=== PATIENT | male | born 1990 | race Caucasian/White ===

== ENCOUNTER 2024-12-05 03:26 | Emergency (ER) | payer MEDICARE, OTHER, SELFPAY ==
--- NOTE | ~2024-12-05 | XR_ITS ---
EXAMINATION: XR hand RT min 3V DATE: 12/05/2024 04:23 INDICATION: Posterior right hand pain after punching a wall TECHNIQUE: Posteroanterior, oblique and lateral views of the right hand were obtained. COMPARISON: None. FINDINGS: Alignment is normal. Possible old healed fracture of the fifth metacarpal. No acute fracture. Joint s paces are normal. Soft tissues are unremarkable. IMPRESSION: 1. No acute osseous abnormality. Reviewed, dictated and finalized at location A.
--- OUTSIDE RECORDS SUMMARY | 2024-12-05 03:29 | XMS_ITS | CONTINUITY OF CARE DOCUMENT ---
Author Name bryant hurtado Address Unknown Organization [facility] Address [address] [place] [address] [address] [place] [address] Phone [phone] Care Team Providers Care Costume Mistress Name Role Phone Lien Diaz MD Unavailable [phone] Lien Diaz MD Unavailable INSURANCE PROVIDERS Payer name Policy type / Coverage type [place] red democrat ID [employer] insurance company [id number] [facility] [employer] insurance [employer] [id number]
--- OUTSIDE RECORDS SUMMARY | 2024-12-05 03:29 | XMS_ITS | Continuity of Care Document ---
Author Organization formerly [facility] Address [address] [place] [address] Phone Care Team Providers Care Ordnance Mechanic Name Role Phone Jack Cabrales DO Unavailable Unavailable Advance Directives Directive Yes / No Effective Date File Name No Information Encounters Encounter Description Practice Location Reason(s) For Visit Diagnoses Date Provider Providers Copied on Encounter [facility], [address] [employer] [employer], [id number], [place] tel:[phone] [facility] No Information Keron Carmona. [address] [place], [address], [place]. tel: [phone] Family History Family Member Type Diagnosis Age At Onset No Information Payers Payer name Insurance type Covered green party ID Authoriza tion(s) [facility] [id number] Social History Type Description Quantity Date Captured Comments Sex Male Smoking Status No Information Chief Complaint And Reason For Visit No Information Reason For Referral Reason For Referral No Information History Of Present Illness Encounter Date Complaint History Of Prese nt Illness No Information Functional Status Date Functional Assessmen t No Information Instructions Date Instruction Additional Infor mation No Information Assessments Type Assessment Date No Information Patient Care Teams Name Effective Dates (start - stop) Status Members No Information
[2024-12-05 03:39] VITALS: BP 144/106; PULSE 87; RESP 18; TEMP 36.6; O2SAT 97
--- NOTE | 2024-12-05 05:53 | ED_ITS ---
HPI - General Adult General Chief complaint: Extremity Injury, Upper Stated complaint: Right hand injury, punched a wall Time Seen by Provider: 12/05/24 05:33 History of Present Illness HPI narrative: This is a 34-year-old male presenting after injuring his hand. He was angry and punched wall. No other injuries. No breaks in the skin. Related Data Allergies Allergy/AdvReac Type Severity Reaction Status Date / Time lithium Allergy Unknown Other Verified 12/05/24 03:41 methylphenidate (From Allergy Unknown Other Verified 12/05/24 03:41 Ritalin) Exam Narrative: APPEARANCE: No apparent distress. Head: atraumatic. EYES: EOMI, NOSE: Atraumatic NECK: Trachea midline RESPIRATORY: No increased rate of breathing CARDIOVASCULAR: RRR, ABDOMINAL: Non-distended MUSCULOSKELETAl: Focal exam of the right hand revealed swelling over the 3rd and 4th knuckle. Sweetbread Trimmer strength is intact. Cap refills less than 2 seconds. No breaks in the skin. NEURO: Alert. Moving 4/4 extremities SKIN:: Warm, dry. Normal color PSYCHIATRIC: Normal affect Course Vital Signs Vital signs: Vital Signs Temperature 97.8 F 12/05/24 03:39 Pulse Rate 87 12/05/24 03:39 Respiratory Rate 18 12/05/24 03:39 Blood Pressure 144/106 H 12/05/24 03:39 Pulse Oximetry 97 12/05/24 03:39 Oxygen Delivery Room Air 12/05/24 03:39 Temperature 97.8 F 12/05/24 03:39 Pulse Rate 87 12/05/24 03:39 Respiratory Rate 18 12/05/24 03:39 Blood Pressure 144/106 H 12/05/24 03:39 Pulse Oximetry 97 12/05/24 03:39 Oxygen Delivery Room Air 12/05/24 03:39 Medical Decision Making [facility] Narrative Medical decision making narrative: -Course: 34-year-old male presenting after punching a wall. No fractures on x- ray.No breaks in the skin. Treated w/ Motrin Tylenol discharged. Vital Signs Vital Signs: Vital Signs Temperature 97.8 F 12/05/24 03:39 Pulse Rate 87 12/05/24 03:39 Respiratory Rate 18 12/05/24 03:39 Blood Pressure 144/106 H 12/05/24 03:39 Pulse Oximetry 97 12/05/24 03:39 Oxygen Delivery Room Air 12/05/24 03:39 Temperature 97.8 F 12/05/24 03:39 Pulse Rate 87 12/05/24 03:39 Respiratory Rate 18 12/05/24 03:39 Blood Pressure 144/106 H 12/05/24 03:39 Pulse Oximetry 97 12/05/24 03:39 Oxygen Delivery Room Air 12/05/24 03:39 Discharge Plan Discharge Clinical Impression: Hand pain Patient Disposition: Home Condition: Stable Instructions: Antibiotic Form, Arthralgia (ED) Additional Instructions: Please do not punch [place] anymore. Use Motrin Tylenol for pain. Patient Language: Polish Prescriptions: New ibuprofen 800 mg tablet 800 mg PO TID PRN (Reason: pain) 7 Days Qty: 21 0RF acetaminophen 500 mg tablet 1,000 mg PO TID PRN (Reason: lizzeth) 7 Days Qty: 42 0RF Follow-up/Referrals: Stephenie Betancur MD [Primary Care Provider] -
[2024-12-05] MEDS: IBUPROFEN 400 MG TABLET 800 MG PO (06:11)
[2024-12-05] MEDS: ACETAMINOPHEN 500 MG TABLET 1000 MG PO (06:11)
--- OUTSIDE RECORDS SUMMARY | 2024-12-05 06:29 | XMS_ITS | Clinical Summary ---
Author Organization [facility] Address [address] [place] [address] Care Team Providers Care Clinical Recruiter Name Role Phone Sarbjit Cardenas MD Unavailable [phone] Kris Membreno MD Unavailable [phone] Fermin Carney MD Primary Care Provider Jorge Hutchins MD Unavailable [phone] Maricruz Saunders RN Unavailable [phone] Allergies Active Allergy Reactions Criticality Noted Date Comments [place] Vomiting Low Methylphenidate Palpitations Low Medications aspirin 81 mg enteric coated tablet Take 1 tablet (81 mg total) by mouth 2 (two) times a day for 14 days 28 tablet 01/30/20 22 Active Additional Information Patient not taking.Reported on 11/25/2024 acetaminophen (TYLENOL) 500 mg tabletIndications: Pain Take 2 tablets (1,000 mg total) by mouth every 6 (six) hours as needed for pain 60 tablet 1 03/20/20 22 Active naproxen (NAPROSYN) 500 mg tablet Take 1 tablet (500 mg total) by mouth 2 (two) times a day with meals for 14 days 28 tablet 07/01/20 22 Active rizatriptan SCOW HAND (MAXALT-SCOW HAND) 10 mg disintegrating tabletIndications: Migraine Take 1 tablet (10 mg total) by mouth every 2 (two) hours as needed for migraine May repeat in 2 hours if unresolved. Do not exceed 30 mg in 24 hours. 9 tablet 3 01/18/20 23 Active Additional Information Patient not taking.Reported on 11/25/2024 ondansetron ODT (ZOFRAN-ODT) 4 mg disintegrating tablet Dissolve 1 tablet for mild to moderate nausea or vomiting or 2 tablets for severe nausea or vomiting oral twice a day as needed. 20 tablet 09/01/19 24 Active Additional Information Patient not taking.Reported on 11/25/2024 ergocalciferol (VITAMIN D) 50,000 unit capsuleIndications :Vitamin D Deficiency Take 1 capsule (50,000 Units total) by mouth once a week For 12 weeks 12 capsule 3 06/09/20 24 Active albuterol HFA (ProAir HFA) 90 mcg/actuation inhalerIndications :Mild intermittent asthma without complication Inhale 2 puffs every 4 (four) hours as needed for wheezing or shortness of breath 8.5 g 2 06/09/20 24 025 Active magnesium oxide (MAG-OX) 400 mg (241.3 mg elemental magnesium) tablet Take 1 tablet (400 mg total) by mouth daily 30 tablet 3 08/13/19 25 Active rimegepant (NURTEC ODT) tablet,disintegrat ingIndications:[facility] 1 tablet (75 mg total) under the tongue every other day 16 tablet 1 08/13/19 25 Active Additional Information Patient not taking.Reported on 11/25/2024 amitriptyline (ELAVIL) 25 mg tabletIndications: Chronic migraine without aura without status migrainosus, not intractable Take one tablet po qhs for one week, then two tablets po qhs 200 tablet 11/06/19 25 Active sulfamethoxazole-t rimethoprim (BACTRIM DS) 800-160 mg per tablet Take 1 tablet by mouth 2 (two) times a day 11/23/19 25 Active sulfamethoxazole-t rimethoprim (BACTRIM DS) 800-160 mg per tabletIndications: Cellulitis of groin Take 1 tablet (160 mg of trimethoprim total) by mouth 2 (two) times a day for 5 days 10 tablet 11/26/19 25 025 Active Problems Problem Noted Date Diagnosed Date Cellulitis 11/25/2024 Assessment & Plan (11/25/2024 5:07 PM CDT): Patient with indurated lesion located and suprapubic area. Improving in size and draining. Patient denied I and D in office today. Today's day 3 of 7 of Bactrim. Will extend an extra 5 days. Chronic post-traumatic headache 08/30/2024 Preventative health care 07/17/2023 Assessment & Plan (07/17/2023 11:39 AM MARKETING OPERATIONS COORDINATOR): - New or chronic worsening conditions: no significant acute issues on this visit - Mental health: no significant psychiatric/mental health conditions affecting her day to day functioning - Dental health: Up to date with regular dental care and cleaning. Discussed importance of regular tooth brushing, flossing, and dental visits. - Nutrition: Stressed importance of moderation in sodium/caffeine intake, saturated fat and cholesterol, caloric balance, sufficient intake of fresh fruits, vegetables - Exercise: Stressed the importance of regular exercise - Immunizations: Age and sex appropriate immunizations reviewed and offered Prostate cancer screening: Colon cancer screening: Lung cancer screening: DDD (degenerative disc disease), lumbar 07/17/20 Overview (07/21/2023): XR Lumbar spine 08/02 IMPRESSION: Unchanged grade 1 L5 on S1 anterolisthesis. Bilateral L5 pars defects.. Unchanged mild L3-L4 degenerative disc disease. Environmental allergies 10/20/2022 Assessment & Plan (10/20/2022 5:13 PM CDT): - chronic, poorly controlled - start use of antihistamines, script sent for Cetirizine 10 mg daily PRN Vitamin D deficiency 10/16/2022 Assessment & Plan (06/10/2024 6:10 AM CDT): - chronic, not at goal - noted to have vitamin D deficiency 12/2021 - most recent Vitamin D level is as shown below - patient not on Vitamin D 50K weekly, has run out of it, refill placed - recheck labs, order placed Vitamin D 25-OH Date Value Ref Range Status 07/17/2023 16 (L) 30 - 80 ng/mL Final Assessment & Plan (07/17/2023 12:01 PM MARKETING OPERATIONS COORDINATOR): - chronic, not at goal - noted to have vitamin D deficiency 12/2021 - most recent Vitamin D level is as shown below - patient not on Vitamin D 50K weekly, refill placed - recheck labs, order placed Vitamin D 25-OH Date Value Ref Range Status 01/01/2022 20 (L) 30 - 80 ng/mL Final Comment: Testing performed by: [facility], [address] [place] [address]., [id number] Assessment & Plan (01/20/2023 2:26 PM CDT): - chronic, not at goal - noted to have vitamin D deficiency 12/2021 - most recent Vitamin D level is as shown below - patient not on Vitamin D 50K weekly, refill placed Vitamin D 25-OH Date Value Ref Range Status 01/01/2022 20 (L) 30 - 80 ng/mL Final Comment: Testing performed by: [facility], [address] [place] [address]., [id number] Assessment & Plan (10/16/2022 2:15 PM MARKETING OPERATIONS COORDINATOR): - chronic, not at goal - noted to have vitamin D deficiency 12/2021 - most recent Vitamin D level is as shown below - patient not on Vitamin D 50K weekly, refill placed Vitamin D 25-OH Date Value Ref Range Status 01/01/2022 20 (L) 30 - 80 ng/mL Final Comment: Testing performed by: [facility], [address] [place] [address]., [id number] Tobacco use 01/02/2022 Shoulder arthritis 12/20/2021 Overview (07/21/2023): Left shoulder XR 08/02 Similar in appearance moderate to severe left glenohumeral osteoarthritis. 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 05/25/2021 Assessment & Plan (05/25/2021 3:59 PM CDT): - new problem, not well controlled - clinical diagnosis - will obtain EMG to confirm - in mean time wear elbow pads, avoid leaning over the elbow or putting pressure over it - if not resolved consider surgical intervention Post-traumatic osteoarthritis of both shoulders 01/18/2021 Assessment & Plan (01/18/2021 10:38 PM CDT): - has follow up with orthopedics Erectile dysfunction 08/15/2020 Mood disorder 07/11/2020 Assessment & Plan (01/20/2023 2:37 PM CDT): - chronic condition follows with [facility] - history of mood disoorder, PTSD, anxiety/depression - patient states he has anger issues, depression - used to be on Wellbutrin XL and Seroquel 25 mg - not on any medications now - getting counseling support biweekly - will defer management to psychiatry at this time - no SI, HI, Hallucinations, delusions - continue current management per psychiatry Assessment & Plan (01/18/2021 10:41 PM CDT): - follows with [facility] - unclear exact type of mood disorder - patient states he has anger issues, depression - he is currently on Wellbutrin XL and Seroquel 25 mg which was recently started - will defer management to psychiatry at this time - no SI, HI, Hallucinations, delusions Assessment & Plan (08/14/2020 4:14 PM MARKETING OPERATIONS COORDINATOR): - follows with [facility] - unclear exact type of mood disorder - patient states he has anger issues - he is currently on Wellbutrin XL and Seroquel 25 mg which was recently started Assessment & Plan (07/11/2020 12:39 PM MARKETING OPERATIONS COORDINATOR): - unclear exact type of mood disorder - patient states he has anger issues - follows with psychiatry at the [facility] Hearing loss of right ear 07/11/2020 Rotator cuff disorder, right 07/11/2020 Assessment & Plan (07/18/2021 3:02 PM MARKETING OPERATIONS COORDINATOR): - patient has hx of right shoulder surgeries in remote past - more recently did over a month of phsyical tehrapy with inadequate response and was causing more pain which was stopped - I have ordered an Xray of right shoulder for review/interpretation - he has significant weakness, pain and limitation on range of motion that my clinical impression is that he has a rotator cuff tear/labrum tear that may need surgical intervention - States that he has seen ortho, pending surgery/eval insurance issues Would benefit with repeat PT and feel that he may need surgical intervention - will do toradol shot Assessment & Plan (07/11/2020 12:49 PM MARKETING OPERATIONS COORDINATOR): - patient has hx of right shoulder surgeries in remote past - more recently did over a month of phsyical tehrapy with inadequate response and was causing more pain which was stopped - I have ordered an Xray of right shoulder for review/interpretation - he has significant weakness, pain and limitation on range of motion that my clinical impression is that he has a rotator cuff tear/labrum tear that may need surgical intervention - he will Likely need MRI of right shoulder - I will refer to orthopedic surgery for this matter as I do not think he would benefit with repeat PT and feel that he may need surgical intervention Hypogonadism in male 07/10/2020 Assessment & Plan (11/06/2021 10:07 AM CDT): - chronic condition, not well controlled - hx of low testosterone level - complains of low sex drive and low energy and erectile dysfunction, mood disorder - in past saw Urology - he was started on Clomid but eventually stopped medication - has had his FSH, LH, Estradiol and Testosterone levels checked - recheck Testosterone level as he has symptoms again, if low will need to follow up with urology Assessment & Plan (05/25/2021 3:55 PM CDT): - chronic condition, not well controlled - hx of low testosterone level - complains of low sex drive and low energy and erectile dysfunction, mood disorder - recently saw Urology - started on Clomid - has stopped taking clomid - will need follow up with urology - has had his FSH, LH, Estradiol and Testosterone levels checked Lab Results Component Value Date TESTOSTERONE 321 12/27/2020 Assessment & Plan (01/18/2021 10:40 PM CDT): - hx of low testosterone level - complains of low sex drive and low energy and erectile dysfunction, mood disorder - recently saw Urology - started on Clomid - already noticing improvement in ED - has had his FSH, LH, Estradiol and Testosterone levels checked Assessment & Plan (08/14/2020 4:33 PM MARKETING OPERATIONS COORDINATOR): - hx of low testosterone level - complains of low sex drive and low energy and erectile dysfunction, mood disorder - last checked about 2 years ago and then he was prescribed testosterone replacement for short period of time, he used the gel and seems like it helped his mood as well as his sexual desire - I have already checked PSA, CBC - checked testosterone levels which was borderline but now states he did not do it in the morning and that it was done in the afternoon - he has trouble reaching orgasm as well - he has an appointment with Urology Assessment & Plan (07/11/2020 12:32 PM MARKETING OPERATIONS COORDINATOR): - hx of low testosterone level - complains of low sex drive - last checked about 2 years ago and then he was prescribed testosterone replacement for short period of time - he preferred the lotion over the pill - will check PSA, CBC, Testosterone levels - he has trouble reaching orgasm LIZZETTE (obstructive sleep apnea) 07/10/2020 Overview (07/11/2020): Diagnostic Polysomnogram on 07/19/2019 - LIZZETTE with mild AHI 13.7 per hour and a possible atrial fibrillation. Assessment & Plan (01/16/2021 3:16 PM CDT): - states he was tested in 2018 and was diagnosed with LIZZETTE - obtained and reviewed records from outside facility - in care everywhere and - had Diagnostic Polysomnogram on 07/19/2019 - LIZZETTE with mild AHI 13.7 per hour and a possible atrial fibrillation. Assessment & Plan (07/11/2020 12:36 PM MARKETING OPERATIONS COORDINATOR): - states he was tested in 2018 and was diagnosed with LIZZETTE - obtained and reviewed records from outside facility - in care everywhere and - had Diagnostic Polysomnogram on 07/19/2019 - LIZZETTE with mild AHI 13.7 per hour and a possible atrial fibrillation. Class 3 severe obesity due t o excess calories without serious comorbidity with body mass index (BMI) of 40.0 to 44.9 in adult 07/10/2020 Assessment & Plan (06/10/2024 6:13 AM CDT): Wt Readings from Last 3 Encounters: 06/09/24 128.8 kg (284 lb) 05/28/24 129.7 kg (286 lb) 11/02/23 119.3 kg (263 lb) Body mass index is 40.75 kg/m . - chronic condition, not at goal --> some weight gain noted - BMI Follow-up includes: nutrition counseling, exercise counseling and education Assessment & Plan (09/08/2023 4:19 PM MARKETING OPERATIONS COORDINATOR): Wt Readings from Last 3 Encounters: 09/08/23 119.3 kg (263 lb) 09/01/23 120.2 kg (265 lb) 07/17/23 123.8 kg (273 lb) Body mass index is 37.74 kg/m . - chronic condition, not at goal --> some weight loss noted - BMI Follow-up includes: nutrition counseling, exercise counseling and education Assessment & Plan (07/17/2023 11:40 AM MARKETING OPERATIONS COORDINATOR): Wt Readings from Last 3 Encounters: 07/17/23 123.8 kg (273 lb) 01/20/23 119.2 kg (262 lb 12.8 oz) 01/17/23 119.9 kg (264 lb 6.4 oz) Body mass index is 39.17 kg/m . - chronic condition, not at goal, worse - weight gain noted - BMI Follow-up includes: nutrition counseling, exercise counseling and education Assessment & Plan (01/20/2023 2:28 PM CDT): Wt Readings from Last 3 Encounters: 01/20/23 119.2 kg (262 lb 12.8 oz) 01/17/23 119.9 kg (264 lb 6.4 oz) 11/11/22 122 kg (269 lb) Body mass index is 37.71 kg/m . - chronic condition, not at goal - BMI Follow-up includes: nutrition counseling, exercise counseling and education Assessment & Plan (11/11/2022 11:28 AM CDT): Wt Readings from Last 3 Encounters: 11/11/22 122 kg (269 lb) 10/16/22 122.9 kg (271 lb) 10/10/22 120.2 kg (265 lb) Body mass index is 38.6 kg/m . - chronic condition, not at goal - BMI Follow-up includes: nutrition counseling, exercise counseling and education provided Assessment & Plan (10/16/2022 2:08 PM MARKETING OPERATIONS COORDINATOR): Wt Readings from Last 3 Encounters: 10/16/22 122.9 kg (271 lb) 10/10/22 120.2 kg (265 lb) 08/14/22 122.9 kg (271 lb) Body mass index is 38.88 kg/m . - chronic condition, not at goal - small weight gain noted - BMI Follow-up includes: nutrition counseling, exercise counseling and education Assessment & Plan (08/14/2022 3:17 PM MARKETING OPERATIONS COORDINATOR): Wt Readings from Last 3 Encounters: 08/14/22 122.9 kg (271 lb) 07/01/22 118.8 kg (262 lb) 04/18/22 118.9 kg (262 lb 3.2 oz) BMI Readings from Last 3 Encounters: 08/14/22 38.88 kg/m 07/01/22 37.59 kg/m 04/18/22 37.62 kg/m Not at goal of bmi <30 Continue diet and exercise BMI Follow-up includes: nutrition counseling and exercise counseling. Referral to nutritonist placed Assessment & Plan (05/09/2022 5:34 AM CDT): Wt Readings from Last 3 Encounters: 04/18/22 118.9 kg (262 lb 3.2 oz) 01/29/22 115 kg (253 lb 9.6 oz) 01/03/22 113.3 kg (249 lb 12.8 oz) Body mass index is 37.62 kg/m . - chronic condition, not at goal - worse, continue to gain weight - monitor weight, nutritional intake and increase physical activity Lab Results Component Value Date TSH 1.69 10/29/2021 Lab Results Component Value Date LDLCALC 102 10/29/2021 Assessment & Plan (10/18/2021 1:11 PM MARKETING OPERATIONS COORDINATOR): Wt Readings from Last 3 Encounters: 10/18/21 111.1 kg (245 lb) 09/21/21 108.9 kg (240 lb) 09/05/21 110.7 kg (244 lb) Body mass index is 35.15 kg/m . - chronic condition, fluctuating but not at goal - monitor weight, nutritional intake and increase physical activity Assessment & Plan (09/06/2021 5:06 AM MARKETING OPERATIONS COORDINATOR): Wt Readings from Last 3 Encounters: 09/05/21 110.7 kg (244 lb) 08/16/21 115.7 kg (255 lb) 07/28/21 111.1 kg (245 lb) Body mass index is 35.01 kg/m . - chronic condition, fluctuating but not at goal - monitor weight, nutritional intake and increase physical activity Assessment & Plan (08/16/2021 3:09 PM MARKETING OPERATIONS COORDINATOR): Wt Readings from Last 3 Encounters: 08/16/21 115.7 kg (255 lb) 07/28/21 111.1 kg (245 lb) 07/18/21 114.9 kg (253 lb 3.2 oz) Body mass index is 36.59 kg/m . - chronic condition, worsening - BMI Follow-up includes: nutrition counseling, exercise counseling and education provided Assessment & Plan (07/18/2021 3:06 PM MARKETING OPERATIONS COORDINATOR): HPI: Condition is worsening A&P: Discussed/ordered labs, encouraged healthy, low carbohydrate lifestyle and at least 150min/week of exercise, Assessment & Plan (05/25/2021 3:54 PM CDT): Wt Readings from Last 3 Encounters: 05/25/21 110.6 kg (243 lb 12.8 oz) 05/02/21 110.2 kg (243 lb) 04/23/21 114.5 kg (252 lb 6.4 oz) Body mass index is 34.98 kg/m . - BMI Follow-up includes: nutrition counseling, exercise counseling and education provided Assessment & Plan (01/16/2021 3:09 PM CDT): Wt Readings from Last 3 Encounters: 01/16/21 108.2 kg (238 lb 9.6 oz) 12/23/20 109.3 kg (241 lb) 12/07/20 109.3 kg (241 lb) Body mass index is 34.24 kg/m . - BMI Follow-up includes: nutrition counseling, exercise counseling and education provided Assessment & Plan (07/10/2020 3:59 PM MARKETING OPERATIONS COORDINATOR): Wt Readings from Last 3 Encounters: 07/10/20 107.1 kg (236 lb 1.6 oz) 12/17/19 108.5 kg (239 lb 3.2 oz) 12/05/19 111 kg (244 lb 11.4 oz) Body mass index is 33.8 kg/m . - BMI Follow-up includes: nutrition counseling, exercise counseling and education provided Rotator cuff syndrome of both shoulders 07/10/20 20 History of kidney stones 12/04/2019 Assessment & Plan (07/10/2020 3:25 PM MARKETING OPERATIONS COORDINATOR): - x1 history kidney stone, hx of cystoscopy with ureteral stent placement Chronic migraine without aur a without status migrainosus, not intractable 04/19/2010 Assessment & Plan (06/10/2024 6:12 AM CDT): - chronic condition, not at goal/worse - due to being out of medications - recent ED visit with this - has light sensitivity but not much nausea or vomiting with these instances - established care with neurology - Dr. Hutchins but has not been seen since 01/2023 - was on Amitriptyline 25 mg nightly and Maxalt PRN for headaches - restart Amitriptyline 25 mg nightly and then increase to 50 mg nightly - start Nurtec every other day as well - administered Toradol 60 mg IM today in office Assessment & Plan (07/17/2023 11:59 AM MARKETING OPERATIONS COORDINATOR): - chronic condition, not at goal - due to being out of medications - established care with neurology - Dr. Hutchins - was on Amitriptyline 25 mg nightly and Maxalt PRN for headaches, was helping but has been out of his medications - will reach out to get refills - continue current management Assessment & Plan (01/20/2023 2:29 PM CDT): - chronic condition, not at goal - recently established care with neurology - Dr. Hutchins - has been started on Amitriptyline 25 mg nightly and Maxalt PRN for headaches - continue current management Primary hypertension 04/19/2010 Assessment & Plan (09/08/2023 4:20 PM MARKETING OPERATIONS COORDINATOR): BP Readings from Last 3 Encounters: 09/08/23 126/84 09/01/23 128/74 07/17/23 124/88 - chronic, improved - not on any medication (used to be on Amlodipine 5 mg daily) - follow a low salt diet - monitor BP from time to time - manage with diet, weight management for now - continue current management Assessment & Plan (07/17/2023 11:40 AM MARKETING OPERATIONS COORDINATOR): BP Readings from Last 3 Encounters: 07/17/23 124/88 01/20/23 132/90 01/17/23 (!) 142/106 - chronic, improved - not on any medication, used to be on Amlodipine 5 mg daily - follow a low salt diet - monitor BP from time to time - manage with diet, weight management for now - continue current management Assessment & Plan (01/20/2023 2:38 PM CDT): BP Readings from Last 3 Encounters: 01/20/23 132/90 01/17/23 (!) 142/106 11/11/22 134/84 - chronic, improved - not on any medication, used to be on Amlodipine 5 mg daily - follow a low salt diet - monitor BP from time to time - manage with diet, weight management for now - continue current management Assessment & Plan (10/16/2022 2:07 PM MARKETING OPERATIONS COORDINATOR): - chronic, stable - used to be on amlodipine 5 mg daily - has not been taking it --> restart medication - follow a low salt diet - monitor BP from time to time - would benefit with more consistent medication intake but does not desire to - manage with diet, weight management for now Assessment & Plan (08/14/2022 3:17 PM MARKETING OPERATIONS COORDINATOR): BP Readings from Last 3 Encounters: 08/14/22 118/82 07/01/22 137/94 04/18/22 121/80 Vitals BP 118/82 (BP Location: Left arm, Patient Position: Sitting) Pulse 112 Resp 18 Ht 177.8 cm (5' 10 ) Wt 122.9 kg (271 lb) SpO2 98% BMI 38.88 kg/m Lab Results Component Value Date POTASSIUM 3.3 07/01/2022 At goal without medication Assessment & Plan (08/21/2021 1:01 PM MARKETING OPERATIONS COORDINATOR): - chronic, stable - was prescribed amlodipine 5 mg daily - not taking it - follow a low salt diet - monitor BP from time to time - would benefit with more consistent medication intake but does not desire to - manage with diet, weight management for now Assessment & Plan (07/10/2020 3:49 PM MARKETING OPERATIONS COORDINATOR): - currently not on medication - well controlled without medication - will monitor BP regularly Lumbar disc herniation with radiculopathy 2009 Assessment & Plan (07/17/2023 12:00 PM MARKETING OPERATIONS COORDINATOR): - hx of lumbar disc disease with radiculopathy on right lower extremity - will obtain Xray of lumbar spine, order placed XR Lumbar spine 2019 Lumbar spine: There are no fractures. There is grade 1 anterolisthesis of L5 on S1. Bilateral L5 pars defects are noted. There is mild L3-L4 degenerative disc disease. Assessment & Plan (07/10/2020 4:03 PM MARKETING OPERATIONS COORDINATOR): - hx of lumbar dis disease with radiculopathy on right lower extremity - will obtain Xray of lumbar spine Anxiety and depression 04/19/2009 Overview (06/10/2024): Follows with Psychiatry, PTSD, Anxiety and gets counseling Assessment & Plan (08/14/2022 3:17 PM MARKETING OPERATIONS COORDINATOR): - follows [facility] - Seroquel 25 mg nightly - used to be on Lexapro 20 mg nighty, Quetiapine 25 mg nightly - feels like his anxiety is better but depression is the same - recommended that he should follow with his psychiatrist - no acute depression or anxiety and no suicidal or homicidal ideations - no SI, Hi, hallucinations, delusions Assessment & Plan (01/16/2021 3:15 PM CDT): - follows [facility] with [facility]ry - Seroquel 25 mg nightly - used to be on Lexapro 20 mg nighty, Quetiapine 25 mg nightly - feels like his anxiety is better but depression is the same - recommended that he should follow with his psychiatrist - no acute depression or anxiety and no suicidal or homicidal ideations - no SI, Hi, hallucinations, delusions Assessment & Plan (08/15/2020 8:27 AM MARKETING OPERATIONS COORDINATOR): - follows [facility] - currently on Wellbutrin and has recently been started on Seroquel which he is yet to get via mail order - recommended that he should follow with his psychiatrist - no acute depression or anxiety and no suicidal or homicidal ideations Assessment & Plan (07/10/2020 3:50 PM MARKETING OPERATIONS COORDINATOR): - [facility] - currently on Wellbutrin only Posttraumatic stress disorder 04/19/2009 Assessment & Plan (07/10/2020 3:26 PM MARKETING OPERATIONS COORDINATOR): [facility] - he is currently only on bupropion XL 150mg 24 hr tablet Mild intermittent asthma without complication Assessment & Plan (06/10/2024 6:10 AM CDT): - chronic, stable - mild with sporadic use of rescue inhaler - albuterol inhaler - continue current management, refill provided of albuterol Assessment & Plan (01/20/2023 2:28 PM CDT): - chronic, stable - mild with sporadic use of rescue inhaler - albuterol inhaler - continue current management, refill provided Assessment & Plan (09/06/2021 5:08 AM MARKETING OPERATIONS COORDINATOR): - chronic, stable - mild with sporadic use of rescue inhaler - continue current management, refill provided Assessment & Plan (07/10/2020 3:58 PM MARKETING OPERATIONS COORDINATOR): - mild but does not have a rescue inhaler - will prescribe patient a rescue inhaler Resolved Problems Problem Noted Date Diagnosed Date Resolved Date Morbid (severe) obesity due to excess calories 08/14/2022 11/07/2022 Arthritis of shoulder 01/29/20222022 History of migraine headaches 01/02/2022 01/20/2023 Hand pain, right 01/16/2013 01/18/2021 Ureterolithiasis 07/10/2020 Encounters Date Type Department Care Team Description 11/25/2024 10:30 AM CDT Office Visit [facility] at [address] [place] [phone] Jolie Ya MD Cellulitis of groin (Primary Dx) 11/22/2024 11:55 PM CDT - 11/23/2024 2:40 AM CDT Emergency [facility] Emergency Department [address] [place] [id number] Cellulitis of abdominal wall (Primary Dx); Folliculitis Discharge Disposition: Discharge to home or self care 09/20/2024 Telephone [facility] Primary Care at [address] [place] [phone] Fermin Carney MD Case Management- Medication 09/14/2024 Orders Only [facility] Care at [address] [place] [phone] Fermin Carney MD Erectile dysfunction, unspecified erectile dysfunction type (Primary Dx) from Last 3 Months Immunizations Immunization Administration Dates Next Due Anthrax 01/25/2009 DTP 07/17/1993, 0,1988,05/22,1988 H1N1 Inj 07/17/2009 Hep A, Adult 01/25/2009,07/08/2007 Hep B, Adolescent or Pediatric 2,04/29/2001,05/10/2000,07/03,05/26/1998 IPV 07/08/2007 Influenza LAIV (Nasal) 05/18/2010,07/08/2007 Influenza, Quadrivalent, Spl it, Preservative Free, Intramuscular 07/17/2023,10/16/2022,05/25/2021,05/09,06/01/2019,06/05/2017 Influenza, Split 05/25/2009 Influenza, Trivalent, Preser vative Free, Intramuscular 06/02/2024,06/14/2015,06/29/2014,05/07 Influenza, Unspecified 09/11/2022,2022(Deferred: Patient Refused),04/11/2021(Deferred: Patient Refused),05/12/2020,06/01/2019, 019(Deferred: Patient Refused),09/17/2013,10/05/2012, 011 MMR 07/17/1993,09/10/1989 Meningococcal MCV4P (Menactra) 07/08/2007 OPV 07/17/1993, 0,1988,03/26 Pneumococcal Conjugate Pcv20 10/16/2022 Pneumococcal Polysaccharide PPV23 06/14/2015,11/2014 Smallpox 02/09/2009 Td, adsorbed 11/02/2002 Tdap 01/19/2011,01/19/2011,07/08/2007 Typhoid Inactivated 01/25/2009 Varicella 09/11/2007,07/08/2007 Surgical History Surgery Date Site/Laterality Comments OTHER SURGICAL HISTORY Shoulder surgery x 3 SPINE SURGERY Spine surgery OTHER SURGICAL HISTORY Nose surgery x 2 OTHER SURGICAL HISTORY Mouth surgery SINUS SURGERY ORAL SURGERY SHOULDER ARTHROSCOPY W/ ROTA TOR CUFF REPAIR Bilateral CYSTOSCOPY W/ URETERAL STENT PLACEMENT Le ft Medical History Medical History Date Comments Hypertension Hypertension Depression Depression Hx Other Medical Back pain Adhd Spinal headache Arthritis Asthma Sleep apnea Pt does not use cpap Kidney stone Chronic bronchitis (HCC) GERD (gastroesophageal reflux disease) Back pain Thoracic spinal cord injury (HCC) Anxiety Awareness under anesthesia repor ts for sinus surgery & shoulder scope waking up, states takes a lot of anes to put under and that it wears off quickly TBI (traumatic brain injury) (HCC) Smoker Family History Medical History Relation Name Comments Schizophrenia Mother Schizophrenia; Asthma Other 1 Family Hx Asthma; Heart attack Other 1 Family Hx Myocardial infa rction; Before age 60 Migraines Other 1 Family Hx Migraines; Other Other 1 Family Hx Bleeding disord er; /Inheritable or genetic disease; Stroke Other 1 Family Hx Stroke; Before age 60 Breast cancer Other 4 Family hx Cancer, breast ; Diabetes Other 8 Family history of Diabetes mellitus; Hypertension Other 9 Family history of Hypertension; Heart attack Paternal Grandfather Anesthesia problems Neg Hx Relation Name Status Comments Mother Other 1 Family Hx Alive Other 2 Family Hx Alive Other 3 Family Hx Alive Other 4 Family hx Alive Other 5 Family Hx Alive Other 6 Family Hx Alive Other 7 Family Hx Alive Other 8 Other 9 Paternal Grandfather Social History Tobacco Use Types Packs/Day Years Used Date Smoking Tobacco: Former Cigarettes 0.3 10 0 10/2011 - 10/2021 Smokeless Tobacco: Current Snuff Tobacco Cessation:Ready to Q uit: Not Asked; Counseling Given: Not Answered Comments:Quit last year Alcohol Use Standard Drinks/Week Comments Not Currently 0 (1 standard drink = 0.6 oz pur e alcohol) [facility] Utilities Answer Date Recorded In the past 12 months has [employer], oil, or water [employer] threatened to shut off services in your home? No 11/25/2024 Social Connection and Isolation Panel [NHANES] A nswer Date Recorded In a typical week, how many times do you talk on the phone with family, friends, or neighbors? Three times a week 11/26/19 25 How often do you get togethe r with friends or relatives? Three times a week 11/25/2024 How often do you attend chur ch or shinto services? Never 11/25/2024 Do you belong to any clubs o r organizations such as latter day groups, unions, fraternal or athletic groups, or school groups? No 11/25/2024 How often do you attend meet ings of the clubs or organizations you belong to? Never 11/25/2024 Are you , , di vorced, , never , or living with a partner? Living with partner 11/25/2024 AUDIT-C Answer Date Recorded Q1: How often do you have a drink containing alcohol? Never 11/25/2024 Q2: How many drinks containi ng alcohol do you have on a typical day when you are drinking? Patient does not drink Q3: How often do you have si x or more drinks on one occasion? Never 11/25/2024 Overall Financial Resource Strain (CARDIA) Answe r Date Recorded How hard is it for you to pa y for the very basics like food, housing, medical care, and heating? Not very hard 11/25/2024 PHQ-2 Answer Date Recorded PHQ-2 Total Score (If total score is 3 or more points, staff should administer the PHQ-9) 0 11/25/2024 Hunger Vital Sign Answer Date Recorded Within the past 12 months, y ou worried that your food would run out before you got the money to buy more. Never true 11/26/19 25 Within the past 12 months, t he food you bought just didn't last and you didn't have money to get more. Never true 11/25/2024 PRAPARE - Transportation Answer Date Re corded In the past 12 months, has l ack of transportation kept you from medical appointments or from getting medications? No 11/09 In the past 12 months, has l ack of transportation kept you from meetings, work, or from getting things needed for daily living? No 11/25/2024 Housing Stability Vital Sign Answer Parvez e Recorded In the last 12 months, was t here a time when you were not able to pay the mortgage or rent on time? No 11/25/2024 In the past 12 months, how m any times have you moved where you were living? 0 11/25/2024 At any time in the past 12 m [facility], were you homeless or living in a custodial (including now)? No 11/25/2024 Personal Safety Answer Date Recorded Have you ever been in or are you currently in a harmful physical or emotional relationship or is someone making you feel afraid or unsafe? Denies 11/22/2024 Sex and Gender Information Value Date Recorded Sex Assigned at Not on file Legal Sex Male 3:50 AM MARKETING OPERATIONS COORDINATOR Gender Identity Male 10/29/2021 1:34 PM CDT Sexual Orientation Straight 08/15/2020 10 :29 AM MARKETING OPERATIONS COORDINATOR Obstetrics History Last Filed Vital Signs Vital Sign Reading Time Taken Comments Blood Pressure 120/90 11/25/2024 10:54 AM CDT Pulse 91 11/25/2024 10:54 AM CDT Temperature 36.7 C (98 F) 11/23/2024 2:00 AM CDT Respiratory Rate 18 11/25/2024 10:5 4 AM CDT Oxygen Saturation 93% 11/25/2024 10: 54 AM CDT Inhaled Oxygen Concentration - - Weight 127.5 kg (281 lb 1.6 oz) 025 10:54 AM CDT Height 177.8 cm (5' 10 ) 11/25/2024 10: 54 AM CDT Body Mass Index 40.33 11/25/2024 10:54 AM CDT Plan of Treatment Health Maintenance Due Date Last Done Comments Hepatitis C Screening 1988 DTaP/Tdap/Td Vaccine (9 - Td or Tdap) 01/19/2021 01/19/2011, 01/19/2011, 07/08/2007, Additional history exists Regular Well Visit/Exam 18-64 07/17/2024 07/17/2023 Depression Screening 11/25/2025 11/25/2024, 06/09/2024, 09/08/2023, Additional history exists Hepatitis B Screening Completed 09/22/2001 , 04/29/2001, 05/10/2000, Additional history exists Varicella Vaccines Completed 09/11/2007, 07/08/2007 Pneumococcal vaccine <65 Completed 023, 06/14/2015, 06/14/2015 Influenza Vaccine Completed 06/02/2024, , 10/16/2022, Additional history exists HPV Vaccines Aged Out No longer eligi ble based on patient's age to complete this topic Goals Goal Patient Goal Type Associated Problems Recent Progress Patient-Stated? Author CINDY General Goal - Patient / caregiver verbalizes lifestyle changes necessary to meet self-care needs and executes self-care activities to utmost capability ACO Care Management Maricruz Roberto, RN Note: Problem: At Risk for Self Care Deficit Interventions: - Assess patient's level of dependence on others along with current level of assistance being provided. - Use motivational interviewing to help guide the patient in accepting the needed amount of assisstance, as applicable. - Contact caregiver and assess their involvement with patient and level of assistance provided, as appropriate. - Assess appropriateness for Home Health. Start referral process if skilled need is present. - Encourage independent ADL's as appropriate. Ensure patient has the appropriate tools at home to be as independent as possible. - Provide fall prevention education to patient and caregiver. - Evaluate need for assistive devices. - Refer to SW if appropriate and patient is agreeable. [facility] Hypertension Care Plan Chronic Care Management On track(2023 10:11 AM MARKETING OPERATIONS COORDINATOR) Maricruz Roberto, RN Note: Problem: Hypertension Goals: 1. Meet age adjusted blood pressure goals 2. Prevention of complications including eyes, kidneys blood vessels 3. Avoid low blood pressure/passing out 4. Improve medicine access and compliance Strategies: - DASH Diet education - Periodic phone call screening for development of vision changes, pain/fatigue associated with walking, near falls - Periodic phone calls to request blood pressure readings, frequency of missed medication doses, any side affects - Encourage regular MD visits and remind patient of importance of keeping upcoming appointments - Recommend healthy lifestyle strategies and compensatory methods as needed Medical Devices Implanted Type Area Underwriting Account Representative Device Identifier Shelf Expiration Date Model / Serial / Lot [employer] Simplex P Radiopaque Full Dose Cement Bone Sterile 6191-1-010 - [id number] Implanted:Qty: 1 on 01/29/2022 by Julio Cesar Metcalf MD at [facility] Right: Shoulder [employer] 02/08/2024 6191-1-010 / / [id number] Global Ap 52mm [place] Glenoid Peg Fixation Premieron [id number] - [id number] Implanted:Qty: 1 on 01/29/2022 by Julio Cesar Metcalf MD at [facility] Right: Shoulder [employer] [id number] / / Depuy [employer] Stem Short Pc Humeral 10x44 Shoulder [id number] - [id number] Implanted:Qty: 1 on 01/29/2022 by Julio Cesar Metcalf MD at [facility] Right: Shoulder [employer] Inc [id number] / / Depuy [employer] Global Unite 10mm Shoulder 135d Body Humeral Porocoat Sterile [id number] - [id number] Implanted:Qty: 1 on 01/29/2022 by Julio Cesar Metcalf MD at [facility] Right: Shoulder Depuy [employer] 08/10/2031 [id number] / / [id number] Depuy Orth[employer] Global Unite 52mm 18mm Modular Eccentric Shoulder Head Humeral [id number] - [id number] Implanted:Qty: 1 on 01/29/2022 by Julio Cesar Metcalf MD at [facility] Right: Shoulder [employer] Inc 10/09/2031 [id number] / / [id number] Explanted Type Area Underwriting Account Representative Device Identifier Shelf Expiration Date Model / Serial / Lot [employer] Angel Luis 180-224 Contour 6fr 28cm Taper Tip Bladder Brad Low Profile Large Inner Latex Free - [id number] Implanted:Qty: 1 on 12/05/2019 by Sarbjit Cardenas MD at [facility] Explanted:Qty: 1 on 12/17/2019 at [facility] Stent Left: Ureter [employer] Angel Luis 08/16/2021 180-224 / / [id number] [employer] Angel Luis 180-224 Contour 6fr 28cm Taper Tip Bladder Brad Low Profile Large Inner Latex Free - [id number] Implanted:Qty: 1 on 12/17/2019 by Sarbjit Cardenas MD at [facility] Explanted:Qty: 1 on 12/20/2019 Left: Ureter [employer] Angel Luis 05/18/2021 180-224 / / [id number] Procedures Procedure Name Priority Date/Time Associated Diagnosis Comments EGFR STAT 11/22/2024 11:04 PM CDT DIFFERENTIAL AUTO STAT 11/22/2024 11: 04 PM CDT COMPREHENSIVE METABOLIC PANEL STAT 11/22/2024 11:04 PM CDT CBC WITH AUTO DIFFERENTIAL STAT 11/22/2024 11:04 PM CDT from Last 3 Months Results * eGFR (11/22/2024 11:04 PM CDT) eGFR >90 >=60 mL/min/1. 73 m2 Comment: Interpretive Data Reference Interval Normal >/= 90 mL/min/1.73m2 Mildly decreased* 60 - 89 mL/min/1.73m2 Mildly to moderately decreased 45 - 59 mL/min/1.73m2 Moderately to severely decreased 30 - 44 mL/min/1.73m2 Severely decreased 15 - 29 mL/min/1.73m2 Kidney Failure < 15 mL/min/1.73m2 *Relative to young adult level Estimated glomerular filtration rate is determined by the 2020 CKD-EPI equation recommended by the National Kidney Foundation (A Unifying Approach to GFR Estimation: Recommendations of the NKF-ASK Task Force on Reassessing the Inclusion of Race in Diagnosing Kidney Disease, JASN 2020). The CKD-EPI equation should not be used for patients with unstable renal function and has not been validated in children and those over 70. Current interpretive data was last reviewed 2021. Blood 11/22/2024 11:0 4 PM CDT 11/22/2024 11:04 PM CDT Cheng Hurd MD LAB BLOOD ORDERABLES Final Re sult [facility] [id number] Department [place] [address] * (ABNORMAL) Differential, auto (11/22/2024 11:04 PM CDT) Neutrophil abs 6.54(H) 1.50 - 6.50 K/cumm Imm gran abs 0.05 0.00 - 0.10 K/cumm [facility] Lymphocyte abs 3.83(H) 0.80 - 3.30 K/cumm [facility] Monocyte abs 0.68 0.20 - 0.80 K/cumm [facility] Eosinophil abs 0.18 0.00 - 0.50 K/cumm [facility] Basophil abs 0.07 0.00 - 0.10 K/cumm [facility] Neutrophil pct 57.7 % [facility] Comment: Interpretive Data Percent cell count reference ranges are not reported, since discordance with absolute values may lead to misinterpretation of CBC data. Current Interpretive Data was last revised on 2017. Imm gran pct 0.4 % [facility] Comment: Interpretive Data Percent cell count reference ranges are not reported, since discordance with absolute values may lead to misinterpretation of CBC data. Current Interpretive Data was last revised on 2017. Lymphocyte pct 33.7 % [facility] Comment: Interpretive Data Percent cell count reference ranges are not reported, since discordance with absolute values may lead to misinterpretation of CBC data. Current Interpretive Data was last revised on 2017. Monocyte pct 6.0 % [facility] Comment: Interpretive Data Percent cell count reference ranges are not reported, since discordance with absolute values may lead to misinterpretation of CBC data. Current Interpretive Data was last revised on 2017. Eosinophil pct 1.6 % [facility] Comment: Interpretive Data Percent cell count reference ranges are not reported, since discordance with absolute values may lead to misinterpretation of CBC data. Current Interpretive Data was last revised on 2017. Basophil pct 0.6 % [facility] Comment: Interpretive Data Percent cell count reference ranges are not reported, since discordance with absolute values may lead to misinterpretation of CBC data. Current Interpretive Data was last revised on 2017. Blood 11/22/2024 11:0 4 PM CDT 11/22/2024 11:04 PM CDT Cheng Hurd MD LAB BLOOD ORDERABLES Final Re sult [facility] [id number] Department [place] [address] * (ABNORMAL) CBC with auto differential (11/22/2024 11:04 PM CDT) Pathologist [facility] WBC 11.35(H) 3.80 - 9.90 K/cumm Hgb 15.4 13.0 - 17.5 g/dL [facility] Hct 43.3 38.9 - 50.3 % [facility] Plt 288 150 - 400 K/cumm [facility] MPV 9.8 9.1 - 12.3 fL [facility] RBC 4.99 4.30 - 5.80 M/cumm [facility] MCV 86.8 81.3 - 96.4 fL [facility] MCH 30.9 27.1 - 33.3 pg [facility] MCHC 35.6 32.3 - 35.7 g/dL [facility] RDW CV 12.6 11.1 - 14.9 % [facility] RDW SD 39.4 35.7 - 48.1 fL [facility] NRBC abs 0.00 0.00 - 0.01 K/cumm [facility] Blood 11/22/2024 11:0 4 PM CDT 11/22/2024 11:04 PM CDT Cheng Hurd MD LAB BLOOD ORDERABLES Final Re sult [id number] [place] [address] * Comprehensive metabolic panel (11/22/2024 11:04 PM CDT) Pathologist [facility] Sodium 139 135 - 145 mmol/L Potassium, pl 3.5 3.3 - 4.9 mmol/L [facility] Chloride 103 97 - 110 mmol/L [facility] CO2 25 22 - 32 mmol/L [facility] Anion gap 11 2 - 15 mmol/L [facility] BUN 6 6 - 25 mg/dL [facility] Creatinine 0.81 0.80 - 1.30 mg/dL [facility] Glucose 154 70 - 199 mg/dL [facility] Comment: Interpretive Data Fasting glucose >/= 126 mg/dl is diagnostic for diabetes. Fasting is defined as no caloric intake for at least 8 hours. Fasting glucose between 100 mg/dl to 125 mg/dl is diagnostic of prediabetes. In a patient with classic symptoms of hyperglycemia or hyperglycemic crisis, a random glucose >/= 200 mg/dl is diagnostic for diabetes. In the absence of unequivocal hyperglycemia, results should be confirmed by repeat testing. The classification and Diagnosis of Diabetes Diabetes Care 202; 46: S19-S40. Current interpretive data was last revised 2022. Calcium 9.5 8.5 - 10.3 mg/dL [facility] Bilirubin, total 0.8 0.1 - 1.2 mg/dL [facility] Protein, pl 7.5 6.5 - 8.5 g/dL [facility] Albumin 4.4 3.5 - 5.0 g/dL [facility] Alk phos 101 40 - 130 Units/L [facility] ALT 46 7 - 55 Units/L [facility] AST 30 10 - 50 Units/L [facility] Blood 11/22/2024 11:0 4 PM CDT 11/22/2024 11:04 PM CDT Cheng Hurd MD LAB BLOOD ORDERABLES Final Re sult [facility] [id number] Department [place] [address] from Last 3 Months Insurance [facility] Address: [facility] [address] [place] [address] MEDICARE [employer] [facility] MEDICARE Advance Directives For more information, please contact: [phone] * Full Code (Latest Code Status on File) Date Activated Date Inactivated Comments 12/04/2019 3:53 PM 12/05/2019 6:06 PM * Full Code Date Activated Date Inactivated Comments 12/04/2019 3:53 PM 12/04/2019 3:53 PM Care Teams Clinical Recruiter Relationship Specialty Start Date End Date Fermin Carney MD PCP - General Family Medicine 07/10/20 Sarbjit Cardenas MD Consulting Physician Urology 12/05/19 Kris Membreno MD Consulting Physician Urology 12/17/19 Jorge Hutchins MD [address] [place] [address] [address] [facility] [place] [address] Consulting Physician Neurology 01/20/23 Maricruz Saunders, RN [address] [place] [address] [address] [place] [address] Vice President For Instruction 07/06/24
--- OUTSIDE RECORDS SUMMARY | 2024-12-05 06:29 | XMS_ITS | Clinical Summary ---
Author Organization [facility] Address [address] [place] [address] Phone Care Team Providers Care Candy Roller Name Role Phone Provider, None Primary Care Provider Unavailabl e Allergies Active Allergy Reactions Criticality Noted Date Comments [place] Vomiting 04/04/2018 Methylphenidate Hcl Palpitations 04/04/2018 Medications predniSONE (DELTASONE) 20 MG Tablet Take 2 Tablets by mouth daily. 10 Tablet 04/25/2021 Active naproxen (NAPROSYN) 500 MG Tablet Take 1 Tablet by mouth 2 times daily as needed for Moderate or more severe pain. 20 Tablet 04/25/2021 Active Social History Tobacco Use Types Packs/Day Years Used Date Smoking Tobacco: Former Cigarettes Smokeless Tobacco: Never Sex and Gender Information Value Date Recorded Sex Assigned at Male 01/01/2024 2:37 PM CDT Legal Sex Male 9:16 PM CDT Gender Identity Male 01/01/2024 2:37 PM CDT Sexual Orientation Straight 01/01/2024 2: 37 PM CDT Last Filed Vital Signs Vital Sign Reading Time Taken Comments Blood Pressure 99/62 05/01/2021 6:15 AM CDT Pulse 82 05/01/2021 6:15 AM CDT Temperature 37.5 C (99.5 F) 05/01/2021 3:22 AM CDT Respiratory Rate 19 05/01/2021 6:15 AM CDT Oxygen Saturation 98% 05/01/2021 6:15 AM CDT Inhaled Oxygen Concentration - - Weight 112 kg (247 lb) 05/01/2021 1:05 AM CDT Height 177.8 cm (5' 10 ) 05/01/2021 1:05 AM CDT Body Mass Index 35.44 05/01/2021 1:05 AM CDT Plan of Treatment Health Maintenance Due Date Last Done Comments Hepatitis C Virus (HCV) Screening 1988 SARS-COV-2 Immunization ( season) 2024 Influenza Immunization (Season Ended) 2025 05/12/2020, 06/01/2019 Respiratory Syncytial Virus (RSV) Immunization (Adult) (1 - 1-dose 75+ series) 02/12/2063 Hepatitis B Immunization Completed 002, 04/29/2001, 05/10/2000, Additional history exists DTaP/Tdap/Td Immunization Discontinued 2010, 11/02/2002, 07/17/1993, Additional history exists TdaP Immunization Completed 01/19/2011 Pneumococcal Immunization Combined Aged Out 06/14/2015 No longer eligible based on patient's age to complete this topic Meningococcal Immunization (ACWY) Aged Out No longer eligible based on patient's age to complete this topic Rotavirus Immunization Aged Out No lo nger eligible based on patient's age to complete this topic Insurance MEDICARE [facility] [place] [address] [place] [address] Care Teams Candy Roller Relationship Specialty Start Date End Date Provider, None [place] PCP - General 04/04/18
--- OUTSIDE RECORDS SUMMARY | 2024-12-05 06:29 | XMS_ITS | Clinical Summary ---
Author Organization [facility] Address [facility] [facility] [place] [address] Care Team Providers Care Machine Stitcher Name Role Phone Joi Blake MD Unavailable [phone] Source Comments [facility],non-owned Affiliates and Associated Physician Practices is amultiple site organization consisting of ambulatory clinics and hospital sitesin [place], [place], [place] and [place]. This disclosure is being madepursuant to the Care Everywhere program and may not contain all information available regarding this patient. Last updated 18.[facility] [employer] Allergies Active Allergy Reactions Criticality Noted Date Comments [place] [facility] High 01/16/2013 Methylphenidate Hcl Palpitations 01/16/2013 Acetaminophen Anaphylaxis High 01/16/2013 Medications * Be aware that medications may not be up to date on this document. Alwaysverify current medications with the patient. No known medications Active Problems Problem Noted Date Diagnosed Date Hand pain, right 01/16/2013 Social History Tobacco Use Types Packs/Day Years Used Date Smoking Tobacco: Some Days Smokeless Tobacco: Never Tobacco Cessation:Ready to Q uit: No; Counseling Given: Yes Alcohol Use Standard Drinks/Week Comments No 0 (1 standard drink = 0.6 oz pur e alcohol) Sex and Gender Information Value Date Recorded Sex Assigned at Male 07/01/2022 3:54 PM ADMITTING COUNSELOR Legal Sex Male 9:49 PM CDT Gender Identity Male 07/01/2022 3:54 PM ADMITTING COUNSELOR Sexual Orientation Bisexual 07/01/2022 3: 54 PM ADMITTING COUNSELOR Last Filed Vital Signs Vital Sign Reading Time Taken Comments Blood Pressure 120/80 06/17/2018 9:59 AM ADMITTING COUNSELOR Pulse 80 06/17/2018 9:59 AM ADMITTING COUNSELOR Temperature 36.8 C (98.3 F) 06/17/2018 9:59 AM ADMITTING COUNSELOR Respiratory Rate 16 06/17/2018 9:59 AM ADMITTING COUNSELOR Oxygen Saturation 94% 06/17/2018 9:59 AM ADMITTING COUNSELOR room air Inhaled Oxygen Concentration - - Weight 113.4 kg (250 lb) 06/17/2018 9:59 AM ADMITTING COUNSELOR Height 176.5 cm (5' 9.5 ) 06/17/2018 9:59 AM ADMITTING COUNSELOR Body Mass Index 36.39 06/17/2018 9:59 AM ADMITTING COUNSELOR Plan of Treatment Health Maintenance Due Date Last Done Comments HIV SCREENING 02/12/2003 HEPATITIS C SCREENING 02/08/2006 DTAP/TDAP/TD VACCINES (1 - Tdap) 02/12/2007 HEPATITIS B VACCINE (1 of 3 - 19+ 3-dose series) 02/12/2007 COVID-19 VACCINE (1 - 2023-2 5 season) 2024 DEPRESSION SCREENING 08/11/2024 INFLUENZA VACCINE (Season Ended) 2025 05/07/20 11 ZOSTER VACCINE (1 of 2) 02/12/2038 HIB VACCINE Aged Out No longer eligi ble based on patient's age to complete this topic HPV VACCINE Aged Out No longer eligi ble based on patient's age to complete this topic MENINGOCOCCAL (Group B) VACC INE SHARED DECISION-MAKING Aged Out No longer eligibl e based on patient's age to complete this topic MENINGOCOCCAL GROUPS A/C/Y/W VACCINE Aged Out No longer eligible b ased on patient's age to complete this topic PNEUMOCOCCAL VACCINE Aged Out No long er eligible based on patient's age to complete this topic Insurance [facility] Value [facility] [address] [place], [place] [address] MEDICARE Care Teams Machine Stitcher Relationship Specialty [place] [id number] [address] Pulmonary Disease 06/17/18
--- OUTSIDE RECORDS SUMMARY | 2024-12-05 06:29 | XMS_ITS | Referral Summary ---
Author Organization [facility] Address [address] [place] [address] Care Team Providers Care Floating Labor Gang Supervisor Name Role Phone Sarbjit Cardenas MD Unavailable [phone] Kris Membreno MD Unavailable [phone] Fermin Carney MD Primary Care Provider Jorge Hutchins MD Unavailable [phone] Maricruz Saunders RN Unavailable [phone] Encounters Date Type Department Care Team Description 11/25/2024 10:30 AM CDT Office Visit [facility] at [address] [place] [address] Jolie Ya MD Cellulitis of groin (Primary Dx) 11/22/2024 11:55 PM CDT - 11/23/2024 2:40 AM CDT Emergency [facility] Emergency Department [address] [place] [address] Cellulitis of abdominal wall (Primary Dx); Folliculitis Discharge Disposition: Discharge to home or self care 09/20/2024 Telephone [facility] Primary Care at [address] [address] Fermin Carney MD Case Management- Medication 09/14/2024 Orders Only [facility] Primary Care at [address] [place] [address] Fermin Carney MD Erectile dysfunction, unspecified erectile dysfunction type (Primary Dx) from Last 3 Months Allergies Active Allergy Reactions Criticality Noted Date Comments Mooar Vomiting Low Methylphenidate Palpitations Low Medications aspirin [...] days 28 tablet 07/01/20 22 Active rizatriptan NEUROSURGEON (MAXALT-NEUROSURGEON) 10 mg disintegrating tabletIndications: Migraine Take 1 [...] 08/13/19 25 Active rimegepant (NURTEC ODT) tablet,disintegrat ingIndications:[facility] 1 tablet (75 mg total) [...] 07/17/2023 Assessment & Plan (07/17/2023 11:39 AM COBOL PROGRAMMER): - New or chronic worsening conditions: no [...] Final Assessment & Plan (07/17/2023 12:01 PM COBOL PROGRAMMER): - chronic, not at goal - noted to have vitamin D deficiency 12/2021 - most recent Vitamin D level is as shown below - patient not on Vitamin D 50K weekly, refill placed - recheck labs, order placed Vitamin D 25-OH Date Value Ref Range Status 01/01/2022 20 (L) 30 - 80 ng/mL Final Comment: Testing performed by: [facility], [address] [place] [address]., [id number] Assessment & Plan (01/20/2023 2:26 PM CDT): - chronic, not at goal - noted to have vitamin D deficiency 12/2021 - most recent Vitamin D level is as shown below - patient not on Vitamin D 50K weekly, refill placed Vitamin D 25-OH Date Value Ref Range Status 01/01/2022 20 (L) 30 - 80 ng/mL Final Comment: Testing performed by: [facility], [address], [place]., [address] Assessment & Plan (10/16/2022 2:15 PM COBOL PROGRAMMER): - chronic, not at goal - noted to have vitamin D deficiency 12/2021 - most recent Vitamin D level is as shown below - patient not on Vitamin D 50K weekly, refill placed Vitamin D 25-OH Date Value Ref Range Status 01/01/2022 20 (L) 30 - 80 ng/mL Final Comment: Testing performed by: [facility], [facility], [place]., [address] Tobacco use 01/02/2022 Shoulder arthritis 12/20/2021 Overview (07/21/2023): Left shoulder XR 08/02 Similar in appearance moderate to severe left glenohumeral osteoarthritis. Assessment & Plan (07/17/2023 12:04 PM COBOL PROGRAMMER): - Chronic condition, not at goal - s/p procedure and surgeries in shoulder joints - would like to have left shoulder evaluated, order placed for XR of left shoulder History of excision of pilonidal cyst 08/21/2021 Assessment & Plan (08/21/2021 1:03 PM COBOL PROGRAMMER): - patient reports pain and discomfort and [...] - chronic condition follows [place] [facility]ry [facility] - history of mood disoorder, PTSD, anxiety/depression [...] PM CDT): - follows with psychiatry [facility] - unclear exact type of mood disorder - patient states he has anger issues, depression - he is currently on Wellbutrin XL and Seroquel 25 mg which was recently started - will defer management to psychiatry at this time - no SI, HI, Hallucinations, delusions Assessment & Plan (08/14/2020 4:14 PM COBOL PROGRAMMER): - follows with psychiatry [facility] - unclear exact type of mood disorder - patient states he has anger issues - he is currently on Wellbutrin XL and Seroquel 25 mg which was recently started Assessment & Plan (07/11/2020 12:39 PM COBOL PROGRAMMER): - unclear exact type of mood disorder - patient states he has anger issues - follows with psychiatry at the [facility] Hearing loss of right ear 07/11/2020 Rotator cuff disorder, right 07/11/2020 Assessment & Plan (07/18/2021 3:02 PM COBOL PROGRAMMER): - patient has hx of right shoulder [...] shot Assessment & Plan (07/11/2020 12:49 PM COBOL PROGRAMMER): - patient has hx of right shoulder [...] checked Assessment & Plan (08/14/2020 4:33 PM COBOL PROGRAMMER): - hx of low testosterone level - [...] Urology Assessment & Plan (07/11/2020 12:32 PM COBOL PROGRAMMER): - hx of low testosterone level - [...] fibrillation. Assessment & Plan (07/11/2020 12:36 PM COBOL PROGRAMMER): - states he was tested in 2018 [...] education Assessment & Plan (09/08/2023 4:19 PM COBOL PROGRAMMER): Wt Readings from Last 3 Encounters: 09/08/23 119.3 kg (263 lb) 09/01/23 120.2 kg (265 lb) 07/17/23 123.8 kg (273 lb) Body mass index is 37.74 kg/m . - chronic condition, not at goal --> some weight loss noted - BMI Follow-up includes: nutrition counseling, exercise counseling and education Assessment & Plan (07/17/2023 11:40 AM COBOL PROGRAMMER): Wt Readings from Last 3 Encounters: 07/17/23 [...] provided Assessment & Plan (10/16/2022 2:08 PM COBOL PROGRAMMER): Wt Readings from Last 3 Encounters: 10/16/22 122.9 kg (271 lb) 10/10/22 120.2 kg (265 lb) 08/14/22 122.9 kg (271 lb) Body mass index is 38.88 kg/m . - chronic condition, not at goal - small weight gain noted - BMI Follow-up includes: nutrition counseling, exercise counseling and education Assessment & Plan (08/14/2022 3:17 PM COBOL PROGRAMMER): Wt Readings from Last 3 Encounters: 08/14/22 [...] 10/29/2021 Assessment & Plan (10/18/2021 1:11 PM COBOL PROGRAMMER): Wt Readings from Last 3 Encounters: 10/18/21 111.1 kg (245 lb) 09/21/21 108.9 kg (240 lb) 09/05/21 110.7 kg (244 lb) Body mass index is 35.15 kg/m . - chronic condition, fluctuating but not at goal - monitor weight, nutritional intake and increase physical activity Assessment & Plan (09/06/2021 5:06 AM COBOL PROGRAMMER): Wt Readings from Last 3 Encounters: 09/05/21 110.7 kg (244 lb) 08/16/21 115.7 kg (255 lb) 07/28/21 111.1 kg (245 lb) Body mass index is 35.01 kg/m . - chronic condition, fluctuating but not at goal - monitor weight, nutritional intake and increase physical activity Assessment & Plan (08/16/2021 3:09 PM COBOL PROGRAMMER): Wt Readings from Last 3 Encounters: 08/16/21 115.7 kg (255 lb) 07/28/21 111.1 kg (245 lb) 07/18/21 114.9 kg (253 lb 3.2 oz) Body mass index is 36.59 kg/m . - chronic condition, worsening - BMI Follow-up includes: nutrition counseling, exercise counseling and education provided Assessment & Plan (07/18/2021 3:06 PM COBOL PROGRAMMER): HPI: Condition is worsening A&P: Discussed/ordered labs, [...] provided Assessment & Plan (07/10/2020 3:59 PM COBOL PROGRAMMER): Wt Readings from Last 3 Encounters: 07/10/20 [...] 12/04/2019 Assessment & Plan (07/10/2020 3:25 PM COBOL PROGRAMMER): - x1 history kidney stone, hx of [...] office Assessment & Plan (07/17/2023 11:59 AM COBOL PROGRAMMER): - chronic condition, not at goal - [...] 04/19/2010 Assessment & Plan (09/08/2023 4:20 PM COBOL PROGRAMMER): BP Readings from Last 3 Encounters: 09/08/23 126/84 09/01/23 128/74 07/17/23 124/88 - chronic, improved - not on any medication (used to be on Amlodipine 5 mg daily) - follow a low salt diet - monitor BP from time to time - manage with diet, weight management for now - continue current management Assessment & Plan (07/17/2023 11:40 AM COBOL PROGRAMMER): BP Readings from Last 3 Encounters: 07/17/23 [...] management Assessment & Plan (10/16/2022 2:07 PM COBOL PROGRAMMER): - chronic, stable - used to be on amlodipine 5 mg daily - has not been taking it --> restart medication - follow a low salt diet - monitor BP from time to time - would benefit with more consistent medication intake but does not desire to - manage with diet, weight management for now Assessment & Plan (08/14/2022 3:17 PM COBOL PROGRAMMER): BP Readings from Last 3 Encounters: 08/14/22 118/82 07/01/22 137/94 04/18/22 121/80 Vitals BP 118/82 (BP Location: Left arm, Patient Position: Sitting) Pulse 112 Resp 18 Ht 177.8 cm (5' 10 ) Wt 122.9 kg (271 lb) SpO2 98% BMI 38.88 kg/m Lab Results Component Value Date POTASSIUM 3.3 07/01/2022 At goal without medication Assessment & Plan (08/21/2021 1:01 PM COBOL PROGRAMMER): - chronic, stable - was prescribed amlodipine 5 mg daily - not taking it - follow a low salt diet - monitor BP from time to time - would benefit with more consistent medication intake but does not desire to - manage with diet, weight management for now Assessment & Plan (07/10/2020 3:49 PM COBOL PROGRAMMER): - currently not on medication - well controlled without medication - will monitor BP regularly Lumbar disc herniation with radiculopathy 2009 Assessment & Plan (07/17/2023 12:00 PM COBOL PROGRAMMER): - hx of lumbar disc disease with radiculopathy on right lower extremity - will obtain Xray of lumbar spine, order placed XR Lumbar spine 2019 Lumbar spine: There are no fractures. There is grade 1 anterolisthesis of L5 on S1. Bilateral L5 pars defects are noted. There is mild L3-L4 degenerative disc disease. Assessment & Plan (07/10/2020 4:03 PM COBOL PROGRAMMER): - hx of lumbar dis disease with radiculopathy on right lower extremity - will obtain Xray of lumbar spine Anxiety and depression 04/19/2009 Overview (06/10/2024): Follows with Psychiatry, PTSD, Anxiety and gets counseling Assessment & Plan (08/14/2022 3:17 PM COBOL PROGRAMMER): [facility] Seroquel 25 mg nightly [...] 3:15 PM CDT): - [facility] with [facility] - Seroquel 25 mg nightly [...] delusions Assessment & Plan (08/15/2020 8:27 AM COBOL PROGRAMMER): - follows [facility] with [facility] - currently on Wellbutrin and has recently been started on Seroquel which he is yet to get via mail order - recommended that he should follow with his psychiatrist - no acute depression or anxiety and no suicidal or homicidal ideations Assessment & Plan (07/10/2020 3:50 PM COBOL PROGRAMMER): - follows [facility] with [facility] - currently on Wellbutrin only Posttraumatic stress disorder 04/19/2009 Assessment & Plan (07/10/2020 3:26 PM COBOL PROGRAMMER): - follows [facility], he follows with a psychiatrist - he [...] provided Assessment & Plan (09/06/2021 5:08 AM COBOL PROGRAMMER): - chronic, stable - mild with sporadic use of rescue inhaler - continue current management, refill provided Assessment & Plan (07/10/2020 3:58 PM COBOL PROGRAMMER): - mild but does not have a rescue inhaler - will prescribe patient a rescue inhaler Resolved Problems Problem Noted Date Diagnosed Date Resolved Date Morbid (severe) obesity due to excess calories 08/14/2022 11/07/2022 Arthritis of shoulder 01/29/20222022 History of migraine headaches 01/02/2022 01/20/2023 Hand pain, right 01/16/2013 01/18/2021 Ureterolithiasis 07/10/2020 Immunizations Immunization Administration Dates Next Due Anthrax [...] Tdap 01/19/2011,01/19/2011,07/08/2007 Typhoid Inactivated 01/25/2009 Varicella 09/11/2007,07/08/2007 Social History Tobacco Use Types Packs/Day Years Used Date Smoking Tobacco: Former Cigarettes 0.3 10 0 10/2011 - 10/2021 Smokeless Tobacco: Current Snuff Tobacco Cessation:Ready to Q uit: Not Asked; Counseling Given: Not Answered Comments:Quit last year Alcohol Use Standard Drinks/Week Comments Not Currently 0 (1 standard drink = 0.6 oz pur e alcohol) [facility] Utilities Answer Date Recorded In the past 12 months has th e [employer], gas, oil, or water [employer] threatened to shut off services in your home? No 11/25/2024 Social Connection and Isolation Panel [NHANES] A nswer Date Recorded In a typical week, how many times do you talk on the phone with family, friends, or neighbors? Three times a week 11/26/19 How often do you get togethe r with friends or relatives? Three times a week 11/25/2024 How often do you attend chur ch or baptist services? Never 11/25/2024 Do you belong to any clubs o r organizations such as restorationism groups, unions, fraternal or athletic groups, or [...] any time in the past [address] [facility], were you homeless or living in a mcc (including now)? No 11/25/2024 Personal Safety Answer Date Recorded Have you ever been in or are you currently in a harmful physical or emotional relationship or is someone making you feel afraid or unsafe? Denies 11/22/2024 Sex and Gender Information Value Date Recorded Sex Assigned at Not on file Legal Sex Male 3:50 AM COBOL PROGRAMMER Gender Identity Male 10/29/2021 1:34 PM CDT Sexual Orientation Straight 08/15/2020 10 :29 AM COBOL PROGRAMMER Last Filed Vital Signs Vital Sign Reading [...] 11/25/2024 10:54 AM CDT Plan of Treatment Not on file Goals Goal Patient Goal Type Associated Problems [...] SW if appropriate and patient is agreeable. [facility] Hypertension Care Plan Chronic Care Management On track(2023 10:11 AM COBOL PROGRAMMER) Maricruz Roberto, RN Note: Problem: Hypertension Goals: [...] as needed Medical Devices Implanted Type Area Vice President Of Development Device Identifier Shelf Expiration Date Model / Serial / Lot [employer]oe [employer] Simplex P Radiopaque Full Dose Cement Bone Sterile 6191-1-010 - [id number] Implanted:Qty: 1 on 01/29/2022 by Julio Cesar Metcalf MD at [facility] Right: Shoulder [employer] 02/08/2024 6191-1-010 / / [id number] [employer] Global Ap 52mm [place] Glenoid Peg Fixation [facility] [id number] - [id number] Implanted:Qty: 1 on 01/29/2022 by Julio Cesar Metcalf MD at [facility] Right: Shoulder [employer] [id number] / / Dep[employer] Inc Stem Short Pc Humeral 10x44 Shoulder [id number] - [id number] Implanted:Qty: 1 on 01/29/2022 by Julio Cesar Metcalf MD at [facility] Right: Shoulder [employer] [id number] / / Depuy [employer] Global Unite 10mm Shoulder 135d Body Humeral Porocoat Sterile [id number] - [id number] Implanted:Qty: 1 on 01/29/2022 by Julio Cesar Metcalf MD at [facility] Right: Shoulder Depuy [employer] 08/10/2031 [id number] / / [id number] [employer] Global Unite 52mm 18mm Modular Eccentric Shoulder Head Humeral [id number] - [id number] Implanted:Qty: 1 on 01/29/2022 by Julio Cesar Metcalf MD at [facility] Right: Shoulder [employer] Inc 10/09/2031 [id number] / / [id number] Explanted Type Area Vice President Of Development Device Identifier Shelf Expiration Date Model / Serial / Lot Center Scientific Angel Luis 180-224 Contour 6fr 28cm Taper Tip Bladder Brad Low Profile Large Inner Latex Free - [id number] Implanted:Qty: 1 on 12/05/2019 by Sarbjit Cardenas MD at [facility] Explanted:Qty: 1 on 12/17/2019 at [facility] Stent Left: Ureter Center Scientific Angel Luis 08/16/2021 180-224 / / [id number] Center Scientific Angel Luis 180-224 Contour 6fr 28cm Taper Tip Bladder Brad Low Profile Large Inner Latex Free - [id number] Implanted:Qty: 1 on 12/17/2019 by Sarbjit Cardenas MD at [facility] Explanted:Qty: 1 on 12/20/2019 Left: Ureter Center Scientific Angel Luis 05/18/2021 180-224 / / [id number] Procedures Procedure Name Priority Date/Time Associated Diagnosis [...] 4 PM CDT 11/22/2024 11:04 PM CDT us Cheng Hurd MD LAB BLOOD ORDERABLES Final Re sult [facility] [address] [place] [address] * (ABNORMAL) Differential, auto (11/22/2024 11:04 PM CDT) Neutrophil abs 6.54(H) 1.50 - 6.50 K/cumm Imm gran abs 0.05 0.00 - 0.10 K/cumm [facility] Lymphocyte abs 3.83(H) 0.80 - 3.30 K/cumm [facility] Monocyte abs 0.68 0.20 - 0.80 K/cumm [facility] Eosinophil abs 0.18 0.00 - 0.50 K/cumm [facility] Basophil abs 0.07 0.00 - 0.10 K/cumm [facility] Neutrophil pct 57.7 % [facility] Comment: Interpretive Data Percent cell count reference ranges are not reported, since discordance with absolute values may lead to misinterpretation of CBC data. Current Interpretive Data was last revised on 2017. Imm gran pct 0.4 % [facility] Comment: Interpretive Data Percent cell count reference ranges are not reported, since discordance with absolute values may lead to misinterpretation of CBC data. Current Interpretive Data was last revised on 2017. Lymphocyte pct 33.7 % [facility] Comment: Interpretive Data Percent cell count reference ranges are not reported, since discordance with absolute values may lead to misinterpretation of CBC data. Current Interpretive Data was last revised on 2017. Monocyte pct 6.0 % [facility] Comment: Interpretive Data Percent cell count reference ranges are not reported, since discordance with absolute values may lead to misinterpretation of CBC data. Current Interpretive Data was last revised on 2017. Eosinophil pct 1.6 % [facility] Comment: Interpretive Data Percent cell count reference ranges are not reported, since discordance with absolute values may lead to misinterpretation of CBC data. Current Interpretive Data was last revised on 2017. Basophil pct 0.6 % [facility] Comment: Interpretive Data Percent cell count reference ranges are not reported, since discordance with absolute values may lead to misinterpretation of CBC data. Current Interpretive Data was last revised on 2017. Blood 11/22/2024 11:0 4 PM CDT 11/22/2024 11:04 PM CDT us Cheng Hurd MD LAB BLOOD ORDERABLES Final Re sult [facility] [address] [place] [address] * (ABNORMAL) CBC with auto differential (11/22/2024 11:04 PM CDT) [facility] WBC 11.35(H) 3.80 - 9.90 K/cumm Hgb 15.4 13.0 - 17.5 g/dL [facility] Hct 43.3 38.9 - 50.3 % [facility] Plt 288 150 - 400 K/cumm [facility] MPV 9.8 9.1 - 12.3 fL [facility] RBC 4.99 4.30 - 5.80 M/cumm [facility] MCV 86.8 81.3 - 96.4 fL [facility] MCH 30.9 27.1 - 33.3 pg [facility] MCHC 35.6 32.3 - 35.7 g/dL [facility] CH RDW CV 12.6 11.1 - 14.9 % [facility] RDW SD 39.4 35.7 - 48.1 fL [facility] NRBC abs 0.00 0.00 - 0.01 K/cumm [facility] Blood 11/22/2024 11:0 4 PM CDT 11/22/2024 11:04 PM CDT Cheng Hurd MD LAB BLOOD ORDERABLES Final Re sult [facility] [address] [place] [address] * Comprehensive metabolic panel (11/22/2024 11:04 PM CDT) [facility] Sodium 139 135 - 145 mmol/L Potassium, pl 3.5 3.3 - 4.9 mmol/L [facility] Chloride 103 97 - 110 mmol/L [facility] CO2 25 22 - 32 mmol/L [facility] Anion gap 11 2 - 15 mmol/L [facility] BUN 6 6 - 25 mg/dL [facility] Creatinine 0.81 0.80 - 1.30 mg/dL [facility] Glucose 154 70 - 199 mg/dL [facility] Comment: Interpretive Data Fasting glucose >/= 126 [...] classification and Diagnosis of Diabetes Diabetes Care 2021; 46: S19-S40. Current interpretive data was last [...] LAB BLOOD ORDERABLES Final Re sult [facility] [address] [place] [address] from Last 3 Months Insurance [facility] CLAIMS MEDICARE [employer] FOR LIFE MEDICARE Advance Directives For more information, please contact: [phone] * Full Code (Latest Code Status on File) Date Activated Date Inactivated Comments 12/04/2019 3:53 PM 12/05/2019 6:06 PM * Full Code Date Activated Date Inactivated Comments 12/04/2019 3:53 PM 12/04/2019 3:53 PM Care Teams Floating Labor Gang Supervisor Relationship Specialty Start Date End Date Fermin Carney MD PCP - General Family Medicine 07/10/20 Sarbjit Cardenas MD Consulting Physician Urology 12/05/19 Kris Membreno MD Consulting Physician Urology 12/17/19 Jorge Hutchins MD [address] [place] [address] [address] [place] [address] Consulting Physician Neurology 01/20/23 Maricruz Saunders, RN [address] [place] [address] [address] [place] [address] Enrollment Specialist 07/06/24
--- OUTSIDE RECORDS SUMMARY | 2024-12-05 06:29 | XMS_ITS | Continuity of Care Document ---
Author Organization [facility] Address [address] [place] [address] Phone Care Team Providers Care Corporate Travel Consultant Name Role Phone Jack Cabrales DO Unavailable Unavailable Advance Directives Directive Yes / No Effective Date File Name No Information Encounters Encounter Description Practice Location Reason(s) For Visit Diagnoses Date Provider Providers Copied on Encounter formerly [facility], [address], [place], [place], [id number], [place] tel:[phone] [facility] No Information Keron Carmona. [address] [place], [address], [place]. tel: [phone] Family History Family Member Type Diagnosis Age At Onset No Information Payers Payer name Insurance type Covered alliance party ID Authoriza tion(s) Medicaid [facility] [id number] Social History Type Description Quantity Date Captured [...]
--- OUTSIDE RECORDS SUMMARY | 2024-12-05 06:29 | XMS_ITS | CONTINUITY OF CARE DOCUMENT ---
Author Name bryant hurtado Address Unknown Organization [facility] Address [address] [place] [address] [address] [place] [address] Phone [phone] Care Team Providers Care Park Superintendent Name Role Phone Lien Diaz MD Unavailable [phone] Lien Diaz MD Unavailable INSURANCE PROVIDERS Payer name Policy type / Coverage type [place] red democrat ID [employer] Choice [employer] insurance company [id number] [facility] [employer] insurance [id number] [id number]
--- OUTSIDE RECORDS SUMMARY | 2024-12-05 06:29 | XMS_ITS | Encounter Summary ---
Author Organization [facility] [email or web address] of [facility] Address [address] [place] [address] Phone Care Team Providers Care Power Sweeper Operator Name Role Phone Sarbjit Cardenas MD Unavailable [phone] Kris Membreno MD Unavailable [phone] Fermin Carney MD Primary Care Provider Jorge Hutchins MD Unavailable [phone] Maricruz Saunders RN Unavailable Encounter Details Date Type Department Care Team (Late st Contact Info) Description 11/21/2021 Orders Only [facility] [phone] Scanning, Provider Social History Tobacco Use Types Packs/Day Years Used Date Smoking Tobacco: Some Days Cigarettes 0.3 10 Started: 2008; Last attempted to quit: 2019 Smokeless Tobacco: Current Snuff Comments:Quit last year Alcohol Use Standard Drinks/Week Comments Not Currently 0 (1 standard drink = 0.6 oz pur e alcohol) PHQ-2 Answer Date Recorded PHQ-2 Total Score (If total score is 3 or more points, staff should administer the PHQ-9) 2 10/18/2021 Sex and Gender Information Value Date Recorded Sex Assigned at Not on file Legal 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[employer] Gender Identity Male 10/29/2021 1:34 PM CDT Sexual Orientation Straight 08/15/2020 10 :29 AM ROBOTIC MACHINE [employer] documented as of this encounter Plan of Treatment Not on file documented as of this encounter Procedures Procedure Name Priority Date/Time Associated Diagnosis Comments SCAN - RADIOLOGY/IMAGING 11/21/2021 documented in this encounter Results * SCAN - RADIOLOGY/IMAGING (11/21/2021) Anatomical Region Laterality Modality Other us Provider Scanning Final Result documented in this encounter Visit Diagnoses Not on filedocumented in this encounter Additional Health Concerns Infection Onset Date Last Indicated Resolved Time COVID: Suspected 09/01/2023 09/01/2023 09/01/2023 1:27 PM ROBOTIC MACHINE [employer] Influenza, adult 09/01/2023 09/01/2023 09/08/2023 3:05 AM ROBOTIC MACHINE [employer] COVID: Suspected 11/02/2023 11/02/2023 11/02/2023 5:21 PM CDT documented as of this encounter Care Teams Power Sweeper Operator Relationship Specialty Start Date End Date Fermin Carney MD PCP - General Family Medicine 07/10/20 Sarbjit Cardenas MD Consulting Physician Urology 12/05/19 Kris Membreno MD Consulting Physician Urology 12/17/19 Jorge Hutchins MD [address] [place] [address] [address] [place] [address] Consulting Physician Neurology 01/20/23 Maricruz Saunders, RN [address] [place] [address] [address] [place] [address] Director Clinical Applications 07/06/24 documented as of this encounter
--- OUTSIDE RECORDS SUMMARY | 2024-12-05 06:29 | XMS_ITS | Clinical Summary ---
Author Organization [facility] Address [facility] [place] [address] Care Team Providers Care Adobe Layer Name Role Phone Unavailable Primary Care Provider Unavailabl e Social History Tobacco Use Types Packs/Day Years Used Date Smoking Tobacco: Never Assessed Sex and Gender Information Value Date Recorded Sex Assigned at Not on file Legal Sex Male 6:04 PM CDT Gender Identity Male 07/02/2022 5:54 AM DIRECTORY CLERK Sexual Orientation Bisexual 07/02/2022 5: 54 AM DIRECTORY CLERK Last Filed Vital Signs Vital Sign Reading Time Taken Comments Blood Pressure 128/92 11/19/2016 12:59 PM CDT Pulse - - Temperature - - Respiratory Rate - - Oxygen Saturation - - Inhaled Oxygen Concentration - - Weight 117.5 kg (259 lb) 11/19/2016 12:59 PM CDT Height 174 cm (5' 8.5 ) 11/19/2016 12:59 PM CDT Body Mass Index 38.81 11/19/2016 12:59 PM CDT Plan of Treatment Health Maintenance Due Date Last Done Comments Annual Physical 02/12/1991 Hepatitis C 02/12/2006 DTaP, Tdap and Td Vaccines ( 1 - Tdap) 02/12/2007 Hepatitis B Vaccines (1 of 3 - 19+ 3-dose series) 02/12/2007 COVID-19 Vaccine (2023-2 5 season) 2024 HPV Vaccines Aged Out No longer eligi ble based on patient's age to complete this topic Meningococcal B Vaccine Aged Out No l onger eligible based on patient's age to complete this topic Meningococcal Vaccine Aged Out No tim elliot eligible based on patient's age to complete this topic Pneumococcal Vaccine: Pediat rics (0 to 5 Years) and At-Risk Patients (6 to 49 Years) Aged Out No longer eligible b ased on patient's age to complete this topic RSV Immunizations Under 20 Months Aged Out No longer eligible based on patient's age to complete this topic
[2024-12-05 07:58] VITALS: BP 142/80; PULSE 70; RESP 16; O2SAT 97
== END 2024-12-05 08:00 | disposition home or self-care (01) ==
LOC: ANHED 06:28
PROVIDERS: Emergency Provider Emergency Medicine; PCP Family Medicine
DX: S69.91XA Unspecified injury of right wrist, hand and finger(s), initial encounter (principal); W22.8XXA Striking against or struck by other objects, initial encounter
CPT/HCPCS: 73130; 99283; A9270